=== PATIENT | male | born 1990 | race Caucasian/White ===

== ENCOUNTER 2018-02-08 05:16 | Inpatient (IN) | END 2018-02-09 16:35 | disposition home or self-care (01) | DRG 395 ==

== ENCOUNTER 2018-02-10 13:32 | Inpatient (IN) | END 2018-02-11 13:55 | disposition left against medical advice (07) | DRG 395 ==

== ENCOUNTER 2019-09-20 13:52 | Emergency (ER) | payer SELFPAY ==
[~2019-09-20] VITALS: Wt 89.0 kg
[~2019-09-20 13:52] MED LIST: CIPR750T3 PO; DOCU250C58 PO; METR-122 PO
[2019-09-20 13:55] VITALS: BP 127/75; PULSE 75; RESP 18
== END 2019-09-20 16:48 | disposition left against medical advice (07) ==
LOC: FTE 13:52
DX: Z53.21 Procedure and treatment not carried out due to patient leaving prior to being seen by health care provider (principal)